=== PATIENT | female | born 1955 | race Caucasian/White ===

== ENCOUNTER 2023-10-18 06:33 | Day surgery (SDC) | payer OTHER ==
[~2023-10-18] VITALS: Ht 162.6 cm; Wt 52.2 kg
[2023-10-18] MEDS ORDERED: diphenhydrAMINE 50 MG/ML VIAL ONE (07:43)
[2023-10-18] MEDS ORDERED: fentaNYL citrate 0.05 MG/ML VIAL ONE ×2 (07:43→08:05)
[2023-10-18] MEDS ORDERED: MIDAZOLAM 5 MG/5 ML VIAL ONE (07:44)
[2023-10-18] MEDS: MIDAZOLAM 2 MG/2 ML VIAL IVP ONE (08:12)
[2023-10-18] MEDS: fentaNYL citrate 0.05 MG/ML VIAL IVP ONE (08:13)
== END 2023-10-18 10:25 | disposition home or self-care (01) ==
LOC: MDS 06:33 → MMU 06:40 → MDS 10:25
PROVIDERS: ATTEND Internal Medicine Gastroenterology
DX: R19.5 Other fecal abnormalities (principal); K64.8 Other hemorrhoids; K57.30 Diverticulosis of large intestine without perforation or abscess without bleeding; K63.5 Polyp of colon; I10 Essential (primary) hypertension; M19.90 Unspecified osteoarthritis, unspecified site; G43.909 Migraine, unspecified, not intractable, without status migrainosus; E78.5 Hyperlipidemia, unspecified; Z90.710 Acquired absence of both cervix and uterus; Z88.8 Allergy status to other drugs, medicaments and biological substances; Z79.899 Other long term (current) drug therapy; Z98.890 Other specified postprocedural states
CPT/HCPCS: 45380; 45385; J2250; J3010; J1200